=== PATIENT | female | born 1970 | race Caucasian/White ===

== ENCOUNTER → 2016-12-04 | Outpatient (CLI) | payer BC ==
--- NOTE | 2016-12-04 08:17 | MR ---
EXAMINATION TYPE: MR knee LT wo con DATE OF EXAM: 12/04/2016 8:02 AM COMPARISON: NONE HISTORY: Left knee pain TECHNIQUE: Multiplanar, multiecho imaging of the left knee is performed without IV contrast on a 3 [place] magnet. FINDINGS: There is a small amount of joint fluid which is partially decompressed into the gastrocnemi us semimembranosus bursa. 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 There is grade II to III chondroma lacia involving the weightbearing surface of the medial femoral condyle. There is grade I to II chond romalacia involving the weightbearing surface of the lateral femoral condyle. The lateral half of the posterior horn of the medial meniscus is truncated. The remainder the posteri or horn and body have abnormal signal but no through and through tear. The lateral meniscus is unrema rkable. Both the anterior and posterior cruciate ligaments are intact. Both the medial and lateral collateral ligament complexes are intact. The iliotibial band inserts nor giselle upon Gerdy's tubercle. The popliteus muscle and tendon are intact. Both the quadriceps and patellar tendons are intact. There is no significant swelling in the Hoffa fa t space. IMPRESSION: 1. CHONDROMALACIA DESCRIBED. 2. ABNORMAL SIGNAL IN THE BODY POSTERIOR HORN OF THE MEDIAL MENISCUS WITH TRUNCATION OF THE LATERAL A SPECT OF THE POSTERIOR HORN OF MEDIAL MENISCUS. THIS MAY BE IATROGENIC.
== END | disposition home or self-care (01) ==
LOC: RADMRIMAIN 07:10
PROVIDERS: ATTEND Orthopaedic Surgery
DX: M22.42 Chondromalacia patellae, left knee (principal)

== ENCOUNTER → 2017-08-01 | Outpatient (CLI) | payer BC ==
[2017-08-01 08:11] LABS: CH 31.9; CHCM 32.2; HCT 43.9 % (34.0-46.0); HDW 2.11; HGB 13.7 gm/dL (11.4-16.0); MCH 31.1 pg (25.0-35.0); MCHC 31.2 g/dL (31.0-37.0); MCV 99.6 fL (80.0-100.0); Mean Platelet Volume 7.6; RBC 4.41 m/uL (3.80-5.40); RDW 12.1 % (11.5-15.5); WBC 7.5 k/uL (3.8-10.6)
[2017-08-01 08:23] LABS: ALT 60 U/L (9-52); AST 36 U/L (14-36); Alkaline Phosphatase 60 U/L (38-126); Anion Gap 8 mmol/L; Blood Urea Nitrogen 13 mg/dL (7-17); Calcium 8.9 mg/dL (8.4-10.2); Carbon Dioxide 26 mmol/L (22-30); Chloride 105 mmol/L (98-107); Cholesterol 172 mg/dL (<200); Glucose 97 mg/dL (74-99); HDL Cholesterol 58 mg/dL (40-60); Non-African American GFR(MDRD) >60 (>60 ml/min/1.73 sqM); Sodium 139 mmol/L (137-145); Total Bilirubin 0.7 mg/dL (0.2-1.3); Total Protein 6.6 g/dL (6.3-8.2)
[2017-08-01 17:01] LABS: Gliadin AB IgA, Deaminated NEGATIVE (NEGATIVE)
--- NOTE | 2017-08-03 09:52 | MM ---
Reason for exam: screening (asymptomatic). Last mammogram was performed 1 year ago. History: Family history of breast cancer in maternal aunt. Physical Findings: A clinical breast exam by your physician is recommended on an annual basis and results should be correlated with mammographic findings. MG 3D Screening Mammo W/Cad Bilateral CC and MLO view(s) were taken. Prior study comparison: July 27, 2016, bilateral MG 3d screening mammo w/cad. September 19, 2011, bilateral digital screening mammo w/CAD. There are scattered fibroglandular densities. No significant changes when compared with prior studies. ASSESSMENT: Negative, BI-RAD 1 RECOMMENDATION: Routine screening mammogram of both breasts in 1 year.
== END | disposition home or self-care (01) ==
LOC: RADMAMWWP 07:28
PROVIDERS: ATTEND Obstetrics & Gynecology
DX: Z12.31 Encounter for screening mammogram for malignant neoplasm of breast (principal)
CPT/HCPCS: 80061; 80053; 85027; 83516; 77063; G0202

== ENCOUNTER 2020-05-02 19:16 | Emergency (ER) | payer BC ==
[2020-05-02 19:22] VITALS: PULSE 70; RESP 18; TEMP 98.6
--- NOTE | 2020-05-02 19:44 | ED ---
Recheck HPI - General Chief Complaint: Recheck/Abnormal Lab/Rx Stated Complaint: Covid exposure Time Seen by Provider: 05/02/20 19:28 Source: patient Mode of arrival: ambulatory Limitations: no limitations - History of Present Illness Initial Comments: 49-year-old female patient presents to the emergency department requesting testing for COVID-19. Patient states that her son works as an individual who works with someone who tested positive for COVID-19. Patient denies having any symptoms. States her son's first exposure was about a week ago. He was last in contact with this person on Sunday. She denies history of medical conditions. Denies any other concerns. - Related Data Previous Rx's Medication Instructions Recorded Hydrocodone/Acetaminophen [[place] 1 each PO Q6HR PRN #40 tab 12/02/15 5-325] Allergies Allergy/AdvReac Type Severity Reaction Status Date / Time No Known Allergies Allergy Verified 05/02/20 19:22 Review of Systems ROS Statement: Those systems with pertinent positive or pertinent negative responses have been documented in the HPI. ROS Other: All systems not noted in ROS Statement are negative. Past Medical History Past Medical History: No Reported History History of Any Multi-Drug Resistant Organisms: None Reported Past Surgical History: No Surgical Hx Reported Smoking Status: Never smoker Past Alcohol Use History: Occasional Past Drug Use History: None Reported General Exam Limitations: no limitations General appearance: alert, in no apparent distress, other (This is a well- developed, well-nourished adult female patient in no acute distress. Vital signs upon presentation are temperature 98.6F, pulse 70, respirations 18, pulse ox 100% on room air) Respiratory exam: Present: normal lung sounds bilaterally. Absent: respiratory distress, wheezes, rales, rhonchi, stridor Cardiovascular Exam: Present: regular rate, normal rhythm, normal heart sounds. Absent: systolic murmur, diastolic murmur, rubs, gallop, clicks Neurological exam: Present: alert, oriented X3, CN II-XII intact Psychiatric exam: Present: normal affect, normal mood Skin exam: Present: warm, dry, intact, normal color. Absent: rash Course Vital Signs 05/02/20 19:18 Temperature 98.6 F Pulse Rate 70 Respiratory 18 Rate O2 Sat by Pulse 100 Oximetry Medical Decision Making - Medical Decision Making 49-year-old female patient presented to the emergency department requesting COVID-19. She has no symptoms. She feels well. V/S are stable. She will be tested and discharged home to follow up with her primary care physician. He is advised to stay away from normal population's until she has her test results. Disposition Clinical Impression: Exposure to COVID-19 virus Disposition: HOME SELF-CARE Condition: Good Instructions (If sedation given, give patient instructions): Viral Syndrome (ED ) Additional Instructions: Await COVID-19 results. Monitor for symptoms, early symptoms could include shortness of breath, cough, scratchy throat, loss of taste or smell. Follow up with your primary care physician for recheck in 1-2 days. Return to the emergency department immediately for any new, worsening, or concerning symptoms. Is patient prescribed a controlled substance at d/c from ED?: No Referrals: None,Stated [Primary Care Provider] - 1-2 days Time of Disposition: 19:44
[2020-05-02 20:00] VITALS: BP 124/83
== END 2020-05-02 20:03 | disposition home or self-care (01) ==
LOC: EC 19:16
DX: Z03.818 Encounter for observation for suspected exposure to other biological agents ruled out (principal)
CPT/HCPCS: 99283; U0003

== ENCOUNTER → 2023-02-02 | Outpatient (CLI) | payer BC ==
[2023-02-02 10:51] LABS: Basophils # (A) 0.03 X 10*3/uL (0.00-0.10); Basophils % (A) 0.4 %; Eosinophils # (A) 0.11 X 10*3/uL (0.04-0.35); Eosinophils % (A) 1.6 %; HCT 38.3 % (37.2-46.3); HGB 12.4 g/dL (12.0-15.0); Immature Grans, Automated 0.4 %; Lymphocytes # (A) 2.61 X 10*3/uL (0.90-5.00); Lymphocytes % (A) 37.2 %; MCH 31.7 pg (27.0-32.0); MCHC 32.4 g/dL (32.0-37.0); Mean Platelet Volume 10.7 fL (9.5-12.2); Monocytes # (A) 0.45 X 10*3/uL (0.20-1.00); Monocytes % (A) 6.4 %; NRBC Per 100 WBC 0 /100 WBCS (0.0-0.0); Neutrophils # (A) 3.79 X 10*3/uL (1.80-7.70); Platelet Count 282 X 10*3/uL (140-440); RBC 3.91 X 10*6/uL (4.10-5.20); RDW 12.9 % (11.5-14.5); WBC 7.02 X 10*3/uL (4.50-10.00)
[2023-02-02 11:24] LABS: ALT 42 U/L (8-44); AST 28 U/L (13-35); African American GFR (CKD) 122.3 (60.0-200.0); Albumin 3.8 g/dL (3.8-4.9); Alkaline Phosphatase 56 U/L (41-126); BUN/Creat Ratio 17.83 Ratio (12.00-20.00); Blood Urea Nitrogen 10.7 mg/dL (9.0-27.0); Carbon Dioxide 25.4 mmol/L (20.0-27.5); Chloride 106 mmol/L (96-109); Follicle Stimulating Hormone 8.7 mIU/mL; Glucose 96 mg/dL (70-110); LDL Cholesterol,Calculated 84.4 mg/dL (0.0-131.0); Luteinizing Hormone 17.4 mIU/mL; Non-African American GFR(CKD) 105.5 (60.0-200.0); Potassium 4.1 mmol/L (3.5-5.5); Sodium 140 mmol/L (135-145); Total Protein 5.8 g/dL (6.2-8.2); VLDL Calculation 15.36 mg/dL (5.00-40.00)
--- NOTE | 2023-02-05 08:53 | MM ---
Reason for Exam: Screening (asymptomatic). Last screening mammogram was performed 12 month(s) ago. Patient History: Menarche at age 12. First Full-Term at age 31. Late child-bearing (after 31). Premenopausal. Maternal aunt had breast cancer, age 60. Risk Values: Genna 5 year model risk: 1.5%. NCI Lifetime model risk: 13.0%. Prior Study Comparison: 07/27/2016 Bilateral Screening Mammogram, [facility]. 08/01/2017 Bilateral Screening Mammogram, [facility]. 01/18/2022 Bilateral Screening Mammogram, [facility]. Tissue Density: There are scattered fibroglandular densities. Findings: Analyzed By CAD. Benign-appearing bilateral axillary lymph nodes are redemonstrated. There is no suspicious new group of microcalcifications or new suspicious mass in either breast. Overall Assessment: Negative, BI-RAD 1 Management: Screening Mammogram of both breasts in 1 year. A clinical breast exam by your physician is recommended on an annual basis and results should be correlated with mammographic findings. Electronically signed and approved by: Nimesh Kim M.D.
== END | disposition home or self-care (01) ==
LOC: RADMAMWWP 07:17
PROVIDERS: ATTEND Family Medicine
DX: Z12.31 Encounter for screening mammogram for malignant neoplasm of breast (principal); Z13.220 Encounter for screening for lipoid disorders; N95.8 Other specified menopausal and perimenopausal disorders; Z80.3 Family history of malignant neoplasm of breast
CPT/HCPCS: 77063; 77067; 80053; 80061; 82306; 82607; 82670; 83001; 83002; 84443; 85025